=== PATIENT | female | born 1940 | race American Indian/Alaskan Native ===

== ENCOUNTER 2018-09-24 15:47 | Emergency (ER) | payer MEDICARE ==
[~2018-09-24] VITALS: Ht 157.5 cm; Wt 63.5 kg
[~2018-09-24 15:47] MED LIST: LASIX20 MG PO; TRAMADOL HCL50 MG PO
[2018-09-24] MEDS ORDERED: CARBIDOPA-LEVO1 EAC1 PO (16:04)
[2018-09-24] MEDS ORDERED: ASPIR-LOW81 MG PO (16:05)
[2018-09-24] MEDS ORDERED: MELATONIN5 M2 PO (16:06)
[2018-09-24] MEDS ORDERED: GABAPENTIN100 MG PO (17:10)
[2018-09-24] MEDS ORDERED: COLACE100 MG PO (17:10)
[2018-09-24] MEDS ORDERED: NORCO 5-325 TA1 EACH PO (17:10)
== END 2018-09-24 17:15 | disposition home or self-care (01) ==
LOC: ED 15:47
DX: M54.16 Radiculopathy, lumbar region (principal); I11.0 Hypertensive heart disease with heart failure; I50.9 Heart failure, unspecified; E11.9 Type 2 diabetes mellitus without complications; E78.00 Pure hypercholesterolemia, unspecified; F17.200 Nicotine dependence, unspecified, uncomplicated; Z90.710 Acquired absence of both cervix and uterus; Z96.642 Presence of left artificial hip joint; Z89.022 Acquired absence of left finger(s); Z88.2 Allergy status to sulfonamides; Z88.8 Allergy status to other drugs, medicaments and biological substances; Z79.82 Long term (current) use of aspirin; Z79.899 Other long term (current) drug therapy
CPT/HCPCS: 72100; 72170; 73502; 99283